=== PATIENT | female | born 1955 ===

== ENCOUNTER 2017-01-07 20:44 | Inpatient (IN) | payer OTHER ==
--- NOTE | 2017-01-07 21:09 | ED PDOC ---
"Arrival/HPI <ModeFranko chawla - Last Filed: 01/08/17 00:18> - General Historian: Patient <Marco Antonio Horner - Last Filed: 01/08/17 16:51> - General Chief Complaint: Back Pain Time Seen by Provider: 01/07/17 21:04 - History of Present Illness Narrative History of Present Illness (Text): 01/07/17 21:09 61 y/o female, pmh including htn/hyperlipidemia/chf/cad/stroke/a.fibb which she was on the eliquis but stop all medications about 2 months ago, penicillin allergy, c/o shortness of breath with the rt. flank pain x 2-3 days. Pt. stated that she is from [place], out of the [facility] for over 1 months, recently been experiencing rt. flank pain with the shortness of breath upon exertion, admits bilateral lower leg swelling with edema and vein dilating, no fever or chills, no coughing, no palpitation, no night sweat, no dizziness, no slurred speech, no pmd from [place], no other medical or psychological complaints. (Marco Antonio Horner) Past Medical History - Provider Review Nursing Documentation Reviewed: Yes - Infectious Disease Hx of Infectious Diseases: None - Reproductive Menopause: Yes - Cardiac Hx Cardiac Disorders: Yes Hx Congestive Heart Failure: Yes - Pulmonary Hx Respiratory Disorders: Yes Hx Asthma: Yes - Neurological Hx Neurological Disorder: No - HEENT Hx HEENT Disorder: Yes Other/Comment: glasses - Renal Hx Renal Disorder: No - Endocrine/Metabolic Hx Endocrine Disorders: No - Hematological/Oncological Hx Blood Disorders: No - Integumentary Hx Dermatological Disorder: No - Musculoskeletal/Rheumatological Hx Musculoskeletal Disorders: Yes Hx Arthritis: Yes Hx Back Pain: Yes - Gastrointestinal Hx Gastrointestinal Disorders: No - Genitourinary/Gynecological Hx Genitourinary Disorders: No - Psychiatric Hx Psychophysiologic Disorder: No Hx Substance Use: No - Surgical History Other/Comment: open heart surgery at 17 years old - Anesthesia Hx Anesthesia: Yes Hx Anesthesia Reactions: No <Marco Antonio Horner - Last Filed: 01/08/17 16:51> Family/Social History - Physician Review Nursing Documentation Reviewed: Yes Family/Social History: Unknown Family HX Smoking Status: Never Smoked Hx Alcohol Use: No Hx Substance Use: No <Marco Antonio Horner - Last Filed: 01/08/17 16:51> Allergies/Home Meds <Franko Coello - Last Filed: 01/08/17 00:18> <Marco Antonio Horner - Last Filed: 01/08/17 16:51> Allergies/Adverse Reactions: Allergies Penicillins Allergy (Verified 01/07/17 20:54) RASH Home Medications: Home Meds Medication Instructions Recorded Confirmed No Known Home Med 01/07/17 01/07/17 Review of Systems - Review of Systems Constitutional: absent: Fatigue, Fevers Respiratory: SOB. absent: Sputum, Wheezing Cardiovascular: absent: Chest Pain Gastrointestinal: absent: Abdominal Pain, Nausea, Vomiting Musculoskeletal: Back Pain. absent: Arthralgias, Neck Pain, Joint Swelling, Myalgias Skin: absent: Rash, Pruritis, Skin Lesions, Laceration, Abscess, Ulcer, Cellulitis <Marco Antonio Horner - Last Filed: 01/08/17 16:51> Physical Exam Vital Signs Reviewed: Yes Temperature: Afebrile Blood Pressure: Normal Pulse: Regular Respiratory Rate: Normal Appearance: Positive for: Well-Appearing, Non-Toxic, Comfortable Pain Distress: Moderate - Systems Exam Head: Present: Atraumatic, Normocephalic Pupils: Present: PERRL Extroacular Muscles: Present: EOMI Conjunctiva: Present: Normal Mouth: Present: Moist Mucous Membranes Neck: Present: Normal Range of Motion Respiratory/Chest: Present: Clear to Auscultation, Good Air Exchange. No: Respiratory Distress, Accessory Muscle Use Cardiovascular: Present: Regular Rate and Rhythm, Normal S1, S2, Other (2+ pedal edema noted bilateral lower extremities. ). No: Murmurs Abdomen: Present: Normal Bowel Sounds. No: Tenderness, Distention, Peritoneal Signs Back: Present: Normal Inspection. No: CVA Tenderness, Midline Tenderness, Paraspinal Tenderness, Pain with Leg Raise, Decubitus Ulcer Upper Extremity: Present: Normal Inspection. No: Cyanosis, Edema Lower Extremity: Present: Normal Inspection. No: Edema Neurological: Present: GCS=15, Speech Normal, Motor Func Grossly Intact, Memory Normal Skin: Present: Warm, Dry, Normal Color. No: Rashes Psychiatric: Present: Alert, Oriented x 3, Normal Insight, Normal Concentration <Marco Antonio Horner - Last Filed: 01/08/17 16:51> Vital Signs Temp Pulse Resp BP Pulse Ox 01/08/17 00:10 107 H 134/88 01/07/17 22:57 99 H 16 140/69 99 01/07/17 20:57 98.2 F 100 H 22 135/77 96 Medical Decision Making <Franko Coello - Last Filed: 01/08/17 00:18> - Lab Interpretations I have reviewed the lab results: Yes - RAD Interpretation Entry Specialists: Radiologist <Marco Antonio Horner - Last Filed: 01/08/17 16:51> ED Course and Treatment: 01/07/17 21:23 -labs/cardiac enzymes -ekg/cxr -ct abdomen and pelvis without contrast -IV morphine/aspirin -door frame assembler machine -observe and reassess 01/08/17 00:22 -EKG: A.fibb @ 110 BPM, no ST elevation or depression, no T wave inversion, -Chest x-ray show: cardiomegally -Bilateral lower extremities venuous doppler: as per preliminary report, no acute DVT -CT abdomen and pelvis: no acute findings except mild central canal stenosis with disc bulge noted at L4-L5 level and L5 S1 level -Labs show BNP elevation around 876 -PT/PTT with normal limit. -Pt.'s HR resting around 97-115BPM, lovenox and cardizam ordered. -I discussed with DR. Aquino, discussed about the labs/radiology studies and medication treatment, agreed on to admit the patient to her service with DR. Casper and Dr. Osborne as routine consult. -I discussed with Dr. Coello and he will put in the admission order. -I discussed with the patient and she agreed to be admitted. (Marco Antonio Horner) - Lab Interpretations Lab Results: 01/07/17 21:38 01/07/17 21:38 Lab Results 01/08/17 00:05: PT 10.5, INR 0.97, APTT 25.4 01/07/17 21:38: Sodium 140, Potassium 3.4 L, Chloride 100, Carbon Dioxide 30, Anion Gap 13, BUN 16, Creatinine 0.6, Est GFR ( Amer) > 60, Est GFR (Non- Af Amer) > 60, Random Glucose 81, Calcium 9.1, Total Bilirubin 0.5, AST 28, ALT 26, Alkaline Phosphatase 56, Lactate Dehydrogenase 587, Total Creatine Kinase 46 , Troponin I < 0.01, NT-Pro-B Natriuret Pep 876 H, Total Protein 8.4 H, Albumin 4.6, Globulin 3.8, Albumin/Globulin Ratio 1.2, Lipase 120 01/07/17 21:38: Urine Color Yellow, Urine Appearance Clear, Urine pH 6.0, Ur Specific [place] 1.010, Urine Protein Negative, Urine Glucose (UA) Negative, Urine Ketones Negative, Urine Blood Negative, Urine Nitrate Negative, Urine Bilirubin Negative, Urine Urobilinogen 0.2, Ur Leukocyte Esterase Trace H, Urine RBC 0 - 2, Urine WBC 0 - 2 01/07/17 21:38: WBC 9.1, RBC 4.65, Hgb 12.7, Hct 38.8, MCV 83.4, MCH 27.3, MCHC 32.7, RDW 15.0 H, Plt Count 180, MPV 9.6, Gran % 54.0, Lymph % (Auto) 38.8 H, [place] % (Auto) 5.8, Eos % (Auto) 1.1 L, Baso % (Auto) 0.3, Gran # 4.89, Lymph # 3.5 H, [place] # 0.5, Eos # 0.1, Baso # 0.03 - RAD Interpretation Radiology Orders: 01/07/17 21:16 ABD & PELVIS W/O PO OR IV CONT [CT] Stat CHEST PORTABLE [RAD] Stat DUPLEX LOWER EXTRM VEIN BILAT [US] Stat 01/07/17 21:16 ABD & PELVIS W/O PO OR IV CONT [CT] Stat CHEST PORTABLE [RAD] Stat DUPLEX LOWER EXTRM VEIN BILAT [US] Stat Chest x-ray: cardiomegaly Bilateral Lower extremities venuous doppler: as per preliminary report, no acute DVT CT Abdomen and pelvis: FINDINGS: Limitations: Evaluation of the solid organ is limited due to lack of IV contrast. Lower thorax: No acute findings. ABDOMEN: Liver: Slightly heterogenous in appearance. Gallbladder and bile ducts: Unremarkable. No calcified stones. No ductal dilation. Pancreas: Pancreas evaluation is limited. No ductal dilation. Spleen: Unremarkable. No splenomegaly. Adrenals: Left adrenal probable adenoma, measuring 2 cm. Kidneys and ureters: Unremarkable. No obstructing stones. No hydronephrosis. Stomach and bowel: Bowel evaluation is limited due to lack of distention. No mucosal thickening. Appendix: No findings to suggest acute appendicitis. PELVIS: Bladder: Unremarkable. No stones. OG FOX | Preliminary Radiology Report MINING TEACHER (QA) DISCREPANCY? If there is a discrepancy between the preliminary and final interpretation, please notify [employer] via [email or web address]. If you do not have access to our QA portal, call our QA team at [phone] CONFIDENTIALITY STATEMENT This report is intended only for the use of the referring physician, and only in accordance with law, If you received this in error, call [phone] Page 2 of 2 Reproductive: Unremarkable as visualized. ABDOMEN and PELVIS: Intraperitoneal space: Unremarkable. No free air. No significant fluid collection. Bones/joints: Significant degenerative changes are noted. There is relative mild central canal stenosis with disc bulge noted at L4-L5 level and L5 S1 level. There is neural foramina narrowing as well. No acute fracture. No dislocation. Soft tissues: Unremarkable. Vasculature: Atherosclerotic changes of the aorta. No abdominal aortic aneurysm. Lymph nodes: Unremarkable. No enlarged lymph nodes. IMPRESSION: No acute findings. Thank you for allowing us to participate in the care of your patient. Dictated and Authenticated by: Blanca Pereira MD 01/07/2017 11:24 PM Eastern Time ([place] & [place]) (Marco Antonio Horner) - Medication Orders Current Medication Orders: Apixaban (Eliquis) 5 mg PO BID [facility] PRN Reason: Protocol Last Admin: 01/08/17 10:38 Dose: 5 mg Aspirin (Ecotrin) 81 mg PO DAILY [facility] Last Admin: 01/08/17 15:21 Dose: 81 mg Atorvastatin Calcium (Lipitor) 40 mg PO DIN [facility] Diltiazem HCl (Cardizem Cd) 180 mg PO DAILY [facility] Last Admin: 01/08/17 10:35 Dose: 180 mg Gabapentin (Neurontin) 300 mg PO HS [facility] PRN Reason: Protocol Lisinopril (Zestril) 5 mg PO DAILY [facility] Last Admin: 01/08/17 15:21 Dose: 5 mg Naproxen (Anaprox Ds) 550 mg PO BID PRN PRN Reason: Arthritis Discontinued Medications Aspirin (Aspirin) 325 mg PO STAT STA Stop: 01/07/17 21:17 Last Admin: 01/07/17 21:45 Dose: 325 mg Diltiazem HCl (Cardizem) 10 mg IVP STAT STA Stop: 01/08/17 00:06 Last Admin: 01/08/17 00:10 Dose: 10 mg Enoxaparin Sodium (Lovenox) 105 mg SC STAT [facility]A PRN Reason: Protocol Stop: 01/08/17 00:37 Last Admin: 01/08/17 01:00 Dose: 105 mg Morphine Sulfate (Morphine) 2 mg IVP STAT STA Stop: 01/07/17 21:25 Last Admin: 01/07/17 21:45 Dose: 2 mg Naproxen (Anaprox Ds) 550 mg PO Q12 [facility] Oxycodone/Acetaminophen (Percocet 5/325 Mg Tab) 1 tab PO STAT STA Stop: 01/08/17 03:48 Last Admin: 01/08/17 04:18 Dose: 1 tab Re-Assess: NELL Pain Assessment Document 01/08/17 05:18 MAXWELL (Rec: 01/08/17 08:00 MAXWELL [id number]) Pain Reassessment Is this a pain reassessment? Yes Sleep Is patient sleeping during reassessment? Yes Pain Scale Used Pain Scale Used Numeric Description Aggravating Factors ADL's Changing Position Alleviating Factors/Management Medication Techniques Alleviating Factors Medication Effectiveness of Techniques EFFECTIVE Potassium Chloride (K-Dur 20 Meq Er Tab) 20 meq PO STAT STA Stop: 01/07/17 22:25 Last Admin: 01/07/17 22:30 Dose: 20 meq - PA / FINISHED GARMENT INSPECTOR / Resident Statement MELANIE has reviewed & agrees with the documentation as recorded. / has examined the patient and agrees with the treatment plan. <Franko Coello - Last Filed: 01/08/17 00:18> - PA / FINISHED GARMENT INSPECTOR / Resident Statement MD/DO has reviewed & agrees with the documentation as recorded. <Marco Antonio Horner - Last Filed: 01/08/17 16:51> Disposition/Present on Arrival <Franko Coello - Last Filed: 01/08/17 00:18> - Present on Arrival Any Indicators Present on Arrival: No History of DVT/PE: No History of Uncontrolled Diabetes: No Urinary Catheter: No History of Decub. Ulcer: No History Surgical Site Infection Following: None - Disposition Have Diagnosis and Disposition been Completed?: Yes Disposition Time: 00:24 Patient Plan: Admission, Telemetry <Marco Antonio Horner - Last Filed: 01/08/17 16:51> - Disposition Diagnosis: Rapid atrial fibrillation, Shortness of breath, Elevated brain natriuretic peptide (BNP) level Disposition: HOSPITALIZED Patient Problems: Current Active Problems Problem Status Onset Rapid atrial fibrillation Acute Shortness of breath Acute Elevated brain natriuretic peptide (BNP) level Acute Condition: STABLE"
[2017-01-07] MEDS ORDERED: Morphine 2 mg/ml ISec IVP STA (21:24)
[2017-01-07 22:07] LABS: BASO # 0.03 K/mm3 (0.0-2.0); BASO % 0.3 % (0.0-3.0); EOS # 0.1 (0.0-0.7); EOS % 1.1 % (1.5-5.0); GRAN # 4.89 (1.4-6.5); HEMOGLOBIN 12.7 g/dL (12.0-16.0); LYMPH # 3.5 (1.2-3.4); LYMPH % 38.8 % (22.0-35.0); MEAN CELL VOLUME 83.4 fl (80.0-105.0); MEAN CORPUSCULAR HEMOGLOBIN 27.3 pg (25.0-35.0); MEAN CORPUSCULAR HGB CONC 32.7 g/dl (31.0-37.0); MEAN PLATELET VOLUME 9.6 fl (7.0-11.0); MONO # 0.5 (0.1-0.6); MONO % 5.8 % (1.0-6.0); PLATELET COUNT 180 10^3/uL (120.0-450.0); RBC 4.65 10^6/uL (3.5-6.1); URINE BILIRUBIN NEGATIVE (NEGATIVE); URINE BLOOD NEGATIVE (NEGATIVE); URINE GLUCOSE (UA) NEGATIVE (NEGATIVE); URINE LEUKOCYTE ESTERASE TRACE Leu/uL (NEGATIVE); URINE NITRATE NEGATIVE (NEGATIVE); URINE PROTEIN NEGATIVE mg/dL (<30 mg/dL); URINE UROBILINOGEN 0.2 E.U./dL (<1 E.U./dL); WHITE BLOOD COUNT 9.1 10^3/ul (4.5-11.0)
[2017-01-07 22:08] LABS: URINE APPEARANCE CLEAR (CLEAR); URINE COLOR YELLOW (YELLOW)
[2017-01-07 22:15] LABS: ALB/GLOB RATIO 1.2 (1.1-1.8); ALBUMIN 4.6 g/dL (3.0-4.8); ALT/SGPT 26 U/L (7-56); AST/SGOT 28 U/L (15-39); BLOOD UREA NITROGEN 16 mg/dL (7-21); CALCIUM 9.1 mg/dL (8.4-10.5); GFR AFRICAN-AMERICAN > 60; GFR NON-AFRICAN AMERICAN > 60; LIPASE 120 U/L (23-300)
[2017-01-07 22:23] LABS: B-TYPE NATRIURETIC PEPTIDE 876 pg/mL (0-450)
[2017-01-07] MEDS ORDERED: Potassium Chloride 20 mEq ER Tab PO STA (22:24)
[2017-01-07 22:33] LABS: URINE RBC 0 - 2 /hpf (0-2); URINE WBC 0 - 2 /hpf (0-6)
[2017-01-07 22:35] LABS: TROPONIN I < 0.01 ng/mL
[2017-01-08] MEDS ORDERED: Enoxaparin 120 mg Syringe SC STA (00:36)
[2017-01-08 00:43] LABS: INR 0.97 (0.93-1.08); PARTIAL THROMBOPLASTIN TIME 25.4 Seconds (23.7-30.8); PROTHROMBIN TIME 10.5 Seconds (9.9-11.8)
[2017-01-08] MEDS ORDERED: Oxycodone/Acetaminophen 5/325 mg Tab PO STA (03:47)
[2017-01-08 04:17] VITALS: BMI 39.9
--- NOTE | 2017-01-08 08:16 | CT ---
PROCEDURE: CT Abdomen and Pelvis without intravenous contrast HISTORY: rt. flank/lower back pain x 3 days, focus L spine COMPARISON: None. TECHNIQUE: Technique. Contrast Dose: Radiation dose: Total exam DLP = 1136 mGy-cm. This CT exam was performed using one or more of the following dose reduction techniques: Automated exposure control, adjustment of the mA and/or kV according to patient size, and/or use of iterative reconstruction technique. FINDINGS: LOWER THORAX: Unremarkable. LIVER: Unremarkable. No gross lesion or ductal dilatation. GALLBLADDER AND BILE DUCTS: Unremarkable. PANCREAS: Unremarkable. No gross lesion or ductal dilatation. SPLEEN: Unremarkable. ADRENALS: 1.6 low-density left adrenal mass is present. A benign left adrenal adenoma is believe to most likely KIDNEYS AND URETERS: Unremarkable. No hydronephrosis. No gross solid mass. Appreciated on this noncontrast study No renal or ureteral calculi VASCULATURE: Scattered bilateral phleboliths are present. . No aortic aneurysm. BOWEL: Mildly redundant. With mild diverticulosis. No diverticulitis. No obstruction. No gross mural thickening. APPENDIX: Not identified. No pericecal inflammatory changes PERITONEUM: Unremarkable. No free fluid. No free air. LYMPH NODES: Unremarkable. No enlarged lymph nodes. BLADDER: Unremarkable. No bladder calculi. REPRODUCTIVE: Unremarkable. BONES: No acute fracture. Thoraco lumbar spondylosis intervening disc space narrowing and vacuum disc phenomena facet arthrosis OTHER FINDINGS: None. IMPRESSION: No urolithiasis No gross renal masses on this non IV contrast enhanced study. Senescent spine changes
--- NOTE | 2017-01-08 08:57 | RAD ---
HISTORY: shortness of breath COMPARISON: No prior. FINDINGS: LUNGS: No active pulmonary disease. PLEURA: No significant pleural effusion identified, no pneumothorax apparent. CARDIOVASCULAR: Severe cardiomegaly OSSEOUS STRUCTURES: Sternal wires VISUALIZED UPPER ABDOMEN: Normal. OTHER FINDINGS: None. IMPRESSION: Severe cardiomegaly.
--- NOTE | 2017-01-08 09:10 | US ---
HISTORY: Leg pain and swelling. Evaluate for DVT PHYSICIAN(S): Aman Spicer MD. TECHNIQUE: Duplex sonography and color-flow Doppler with graded compression were used to evaluate the deep venous systems of both lower extremities. The exam is somewhat limited by edema. FINDINGS: The visualized deep venous systems of both lower extremities are sonographically normal and compressible. Normal wave forms and augmentation are seen. There is no sonographic evidence for deep venous thrombosis in the visualized segments of both lower extremities. IMPRESSION: No sonographic evidence for deep venous thrombosis in the visualized segments of both lower extremities.
[2017-01-08] MEDS: diltiaZEM 180 mg/24 Hours CD Cap PO SCH (10:35)
[2017-01-08 11:25] LABS: BLOOD UREA NITROGEN 14 mg/dL (7-21); CALCIUM 8.9 mg/dL (8.4-10.5); GFR AFRICAN-AMERICAN > 60; GFR NON-AFRICAN AMERICAN > 60; HDL CHOLESTEROL 61 mg/dL (29-60)
[2017-01-08 11:36] LABS: LDL CHOLESTEROL 87 mg/dL (0-129)
[2017-01-08] MEDS ORDERED: Naproxen 550 mg Tab PO PRN (15:09)
--- NOTE | 2017-01-08 18:13 | CARD ---
APPROVED REPORT EXAM: Two-dimensional and M-mode echocardiogram with Doppler and color Doppler. INDICATION Atrial Fibrillation Congestive Heart Failure 2D DIMENSIONS Left Atrium (2D)5.7 (1.6-4.0cm)IVSd1.0 (0.7-1.1cm) LVDd6.1 (3.9-5.9cm)PWd1.1 (0.7-1.1cm) LVDs5.1 (2.5-4.0cm)FS (%) 16.6 % LVEF (%)34.2 (>50%) M-Mode DIMENSIONS Aortic Root3.30 (2.2-3.7cm)Aortic Cusp Exc.2.00 (1.5-2.0cm) Aortic Valve AoV Peak Lxzdfarf860.0cm/Rebecca Peak GR.11mmHg Mitral Valve E/A ratio0.0 TDI E/Lateral E'0.0E/Medial E'0.0 Tricuspid Valve TR Peak [id number] [id number] Peak Gr.19mmHg [id number] LEFT VENTRICLE The Left Ventricle is mildly dilated. There is normal left ventricular wall thickness. The systolic function is moderately impaired.[id number] There is global hypokinesis of the left ventricle. A fib No left ventricle thrombus noted on this study. There is no ventricular septal defect visualized. There is no left ventricular aneurysm. There is no mass noted in the left ventricle. RIGHT VENTRICLE The right ventricle is mildly dilated. There is normal right ventricular wall thickness. Systolic function is mildly to moderately reduced. ATRIA The left atrium is severely dilated. The right atrium is severely dilated. The interatrial septum is intact with no evidence for an atrial septal defect. AORTIC VALVE The aortic valve is thickened but opens well. The aortic valve is mildly to moderately sclerotic. No aortic regurgitation is present. There is no aortic valvular stenosis. There is no aortic valvular vegetation. MITRAL VALVE The mitral valve is thickened but opens well. Mitral annular calcification is mild. Mitral regurgitation is mild to moderate. There is no mitral valve stenosis. There is no evidence of mitral valve prolapse. TRICUSPID VALVE The tricuspid valve leaflets are thickened , but open well. There is mild to moderate tricuspid regurgitation.RVSP-29 mmof Hg. There is no tricuspid valve stenosis. There is no tricuspid valve prolapse or vegetation. PULMONIC VALVE The pulmonary valve is normal in structure. There is trace pulmonic valvular regurgitation. There is no pulmonic valvular stenosis. GREAT VESSELS The aortic root is normal in size. The ascending aorta is normal in size. The pulmonary artery is normal. The IVC is dilated. PERICARDIAL EFFUSION There is no pleural effusion. There is no pericardial effusion. <Conclusion> Four chamber Dilatation. EF-35% No aortic regurgitation is present. Mitral regurgitation is mild to moderate. There is mild to moderate tricuspid regurgitation.RVSP-29 mmof Hg. The IVC is dilated. There is no pericardial effusion. No thrombus or vegetation noted.
[2017-01-08] MEDS ORDERED: Albuterol 0.083% Inhal Sol (2.5 mg/3 mL) UD IH PRN (20:02)
--- NOTE | 2017-01-08 20:30 | CON ---
DATE: 01/08/2017 REASON FOR CONSULTATION AND FOLLOWUP: History of atrial fibrillation, hypertension and admitted with back pain. HISTORY OF PRESENT ILLNESS: A 61-year-old female, resident of [place], visiting at [place]. History of hypertension,hyperlipidemia, history of open heart surgery for atrial septal defect at the age of 11, being followed by national business director in [place], was told to take Cardizem and Eliquis, but patient did not buy the Eliquis, stopped it because it is expensive, taking only Cardizem, admitted yesterday with back pain and flank pain. Denies any chest pain, denies any shortness of breath, denies any palpation. PAST MEDICAL HISTORY: Significant for hypertension, hyperlipidemia, and atrial fibrillation. CURRENT MEDICATION: Taking Cardizem 180 mg and Eliquis 5 mg b.i.d. but did not take Eliquis for more than 2 months. SOCIAL HISTORY: Denies smoking, denies any history of alcohol abuse. PAST SURGICAL HISTORY: History is significant for open heart surgery at age of 11 for atrial septal defect. FAMILY HISTORY: Not contributory. REVIEW OF SYSTEMS: As per HPI. PHYSICAL EXAMINATION: As follows; VITAL SIGNS: Temperature is afebrile, heart rate 97, and blood pressure 157/77. HEENT: PERRLA. Extraocular muscles intact. NECK: Supple. No carotid bruit. No thyromegaly. CHEST: Clear to auscultation. HEART: S1 and S2 regular. ABDOMEN: Soft. EXTREMITIES: Clubbing and cyanosis negative. LABORATORY DATA: EKG showed atrial fibrillation rate of 120, telemetry shows heart rate of 190. Blood workup as follows; WBC 9.8, hemoglobin 12.7, hematocrit 38.8, and platelet count 180. Chemistry shows sodium 140, potassium 3.4, chloride 100, carbon dioxide 30, anion gap of 13, BUN of 16, and creatinine 0.6. Troponin 0.01. IMPRESSION: A 61-year-old female with the past medical history significant for open heart surgery for atrial septal defect at age of 11, history of atrial fibrillation, was on Eliquis, but had stopped two months ago, hypertension, hyperlipidemia, admitted with back pain found to be in atrial fibrillation with rapid rate. The patient started Cardizem and then it was discontinued. The recommendation, will start Eliquis, will start Cardizem CD, echo to assess left ventricular function. The patient wanted to go back to [place] to follow up with cardiology, she has an appointment on next Friday. We will get echocardiogram to assess left ventricular function if patient stays. If patient goes home suggest to continue Eliquis 5 mg b.i.d., Cardizem 180 mg daily and to follow up with the national business director in [place] next Friday. Thank you Dr. Aquino for providing the opportunity in taking care of the patient, Lucero Siegel. We will follow with you. Jessica Oseguera MD cc: Elisa Aquino MD
[2017-01-08] MEDS ORDERED: Naproxen 550 mg Tab PO SCH (22:00)
--- NOTE | 2017-01-09 01:07 | CARD ---
APPROVED REPORT EKG Measurement Heart [id number] <Conclusion> Atrial fibrillation with rapid ventricular response Nonspecific ST and T wave abnormality, probably digitalis effect Abnormal ECG
--- NOTE | 2017-01-09 02:47 | CON ---
DATE: 01/08/2017 PULMONARY CONSULTATION NOTE REFERRING PHYSICIAN: Dr. Aquino. REASON FOR CONSULTATION: May have sleep apnea syndrome, chronic lung disease, admitted with atrial fibrillation with rapid ventricular response. HISTORY OF PRESENT ILLNESS: This is a 61-year-old female with past medical history significant for hypertension, coronary artery disease, heart failure, history of stroke, atrial fibrillation, chronic lung disease. The patient lived in [place]. According to the patient for the last couple of months, she was noncompliant with the medications and stopped some of the medications, had no recall exactly what medications she is taking. Visiting [place] friend, where she developed palpitations, shortness of breath, leg swelling and came to the emergency room, found to be AFib with rapid ventricular response. She was started on IV Cardizem,started on Eliquis. Lasix was given with some success and she feels much better. She likes to sign against medical advice, sitting in the bed with some shortness of breath. I had a long discussion with the patient about her medications, risk of her with her medical issues. She is willing to stay another day until we sought out her medications and stuff. Admits to have snoring, daytime sleepy and tired. Cannot recall her medications, but also admitting that she had been noncompliant on and off. PAST MEDICAL HISTORY: Atrial fibrillation, heart failure, history of stroke, hypertension, hyperlipidemia. ALLERGIES: TO PENICILLIN. SOCIAL HISTORY: She denies any smoking or alcohol use. FAMILY HISTORY: No significant cardiopulmonary disease reported. MEDICATIONS: She was on Cardizem, Eliquis. HOME MEDICATIONS: Unavailable. REVIEW OF SYSTEMS: No headache. No rhinitis. Admit to have snoring and daytime sleepy. Short of breath. No chest pain. No nausea. No vomiting. No diarrhea. No dysuria. Has a leg swelling. PHYSICAL EXAMINATION: VITAL SIGNS: Sitting telemetry bed. Temp is 98, heart rate is 107, respiratory rate is 20, blood pressure 148/86, pulse ox 98% on nasal cannula. HEENT: Moist mucous membranes. Carotid airway. Mallampati score is IV. NECK: Short neck. LUNGS: Has a few crackles at the bases. HEART: Irregularly irregular. ABDOMEN: Soft, nontender. No organomegaly. EXTREMITIES: Does have edema. NEUROLOGIC: Awake, alert and follows simple commands. LABORATORY DATA: Hemoglobin 12.7, hematocrit 38.8, WBC 9.1, and platelets are 180. INR 0.97, PTT is 25. Sodium 140, potassium 4.4, chloride 100, bicarbonate 31, BUN 14, creatinine 0.6, glucose 106, calcium is 8.9. AST 28, ALT 26, alk phos is 56, troponin less than 0.01. TSH is 2.24. Urinalysis is unremarkable. Had CAT scan of the abdomen and pelvis done on admission, which shows no urolithiasis, no gross renal mass. Chest x-ray done which shows cardiomegaly, otherwise unremarkable. Has a venous Doppler on lower extremities done which shows no DVT. IMPRESSION AND PLAN: Cardiomyopathy with atrial fibrillation, rapid ventricular response, hypertension, history of stroke, may have a sleep apnea syndrome, arthritis, noncompliant with the medications. After getting the number for the pharmacy for [place], call was made. According to pharmacy, the patient did not fill her prescription for almost a year, but her clinic was called. According to clinic, a list of medications were obtained which she was taking Naprosyn at home, aspirin at home, Tenormin was also taking. She was on Eliquis 5 mg twice a day, also taking Lipitor 40 mg daily, Neurontin 30 mg at bedtime, Zestril 5 mg daily, so the patient is being started on her home medications according to the clinic data. We will not start Tenormin because she is already on Cardizem for now. We will get cardiology consult. Dr. Hargrove will be seeing the patient. Sleep apnea precaution, *------* any distress. The patient was advised that she go back to [place]. She should have a sleep study done before she leaves tomorrow. If she is stable and cleared by cardiology, we will try to get her medications from pharmacy before she leaves to assure that she will be compliant because she is living in [place] another week or so before she go to [place]. Case discussed with nursing staff in detail. Thank you and we will follow with you. Jessica Osborne MD
[2017-01-09] MEDS: diltiaZEM 180 mg/24 Hours CD Cap PO SCH (09:28)
[2017-01-09 12:26] VITALS: BP 130/52; O2SAT 98
--- NOTE | 2017-01-09 13:03 | HP ---
The patient is [id number] female. CHIEF COMPLAINT: Shortness of breath, noncompliance with medication and back pain. HISTORY OF PRESENT ILLNESS: The patient is an [id number] female with past medical history of hypertension, hypochloremia, congestive heart failure, coronary artery disease, stroke, atrial fibrillation while on Eliquis, but she stopped her medication about 2 months ago. Now came for shortness of breath with the right flank pain from 2 to 3 days. The patient stated that she is from [place] and was out of [facility] for over one month. Recently has been experiencing right flank pain with the shortness of breath upon exertion, admits bilateral lower extremity swelling with edema and vein dilating. No fever, no chills, no nausea, vomiting, diarrhea. No palpitation. No night sweats, no dizziness, no slurring of speech, but experiencing shortness of breath. PAST MEDICAL HISTORY: As above, congestive heart failure, asthma, respiratory problem, COPD, arthritis, back pain, open heart surgery 15 years ago. FAMILY HISTORY: Father and mother noncontributory. HABITS: Never smoked. No drug and no ethanol. ALLERGIES: THE PATIENT IS ALLERGIC TO PENICILLIN. HOME MEDICATION: She is not taking any medication. REVIEW OF SYSTEMS: The patient seen and examined in holding bed of telemetry in the ICU, feeling shortness of breath, chest pain, abdominal pain, back pain. No nausea, vomiting or diarrhea. No hematochezia. No headache or dizziness. PHYSICAL EXAMINATION: VITAL SIGNS: Temperature 98.6, pulse 92, blood pressure 125/57, respiratory rate 23. HEENT: Head is normocephalic and atraumatic. Eyes; PERRLA. Extraocular muscles intact. Conjunctivae clear. Nose is patent. Mucous membrane moist. NECK: Supple. No carotid bruits or thyromegaly. CHEST: Bilaterally symmetrical. HEART: S1 and S2 positive. LUNGS: Clear to auscultation. ABDOMEN: Soft. Bowel sounds positive. No organomegaly. EXTREMITIES: No edema. No cyanosis. NEUROLOGIC: The patient is awake and alert. Moving all 4 extremities. No focal deficit. LABORATORY DATA: White blood cell of 9.1, hemoglobin 12.7, hematocrit 38.8 and platelets 180. Sodium 140, potassium 4.4, hemoglobin A1c 5.5, BNP 876. ASSESSMENT AND PLAN: The patient is a [id number] lady with congestive heart failure, cardiomyopathy with atrial fibrillation, rapid ventricular response, noncompliant to medication, hypertension, history of stroke, sleep apnea syndrome, arthritis and she is resident of [place]. [place] pharmacy was contacted and according to that patient's medicine was not filled for almost a year. The patient should be on Eliquis twice a day, Lipitor, Neurontin. We started medications again. Cardiology and pulmonary disease on the case. Sleep apnea precautions. Advised to take medications regularly. Discussion done with this patient. The patient seen by Dr. Oseguera also. Extremity ultrasound was done by Dr. Aman Spicer, history of open heart surgery with atrial septal defect at the age of 11, hypercholesteremia. We will do echo to assess left ventricular function as per Dr. Oseguera. GI/DVT prophylaxis. We will follow. Elisa Aquino MD KATERINA
[2017-01-09 15:30] VITALS: PULSE 72; RESP 32
[2017-01-09 18:10] VITALS: TEMP 99.1
--- NOTE | 2017-01-09 21:51 | PN ---
DATE: 01/09/2017 REASON FOR CONSULTATION: History of atrial fibrillation, hypertension, admitted with back pain and noncompliance with medication. SUBJECTIVE: The patient denies any chest pain now or shortness of breath, feels much better, wants to go home. OBJECTIVE: GENERAL: Lying flat on the bed in ICU, not in distress. VITAL SIGNS: Temperature afebrile, heart rate *------*, and blood pressure 108/64. HEENT: PERRLA. Extraocular muscles intact. NECK: Supple. No carotid bruits. No thyromegaly. CHEST: Clear to auscultation. HEART: S1 and S2 regular. ABDOMEN: Soft. EXTREMITIES: Clubbing and cyanosis are negative. LABORATORY DATA: Blood workup as follows, WBC 9.1, hemoglobin 12.7, hematocrit 38.8 and platelet count 180 as of 01/07/2017. Blood workup yesterday showed sodium 140, potassium 4.4, chloride 100, carbon dioxide 31, anion gap of 13, BUN 14 and creatinine 0.1. TSH is 2.24. Total triglyceride 96, VLDL total cholesterol 160, LDL 87, HDL 61. IMPRESSION: Chronic atrial fibrillation, was on Eliquis, noncompliance with medication. Hypertension, being followed in [place], dialysis technician. Yesterday, the patient underwent echocardiography that showed four-chambered heart, ejection fraction of 35%, [id number] mitral regurgitation, [id number] tricuspid regurgitation, RV systolic pressure 29, and etiology for cardiomyopathy not clear, but the patient is being followed by [place] dialysis technician, on Eliquis and Cardizem, so we will resume Cardizem and Eliquis. The patient is willing to go back to dialysis technician and has an appointment on next Friday or ; so we will resume Cardizem and start it again and continue Eliquis, continue aspirin, continue lisinopril 5 mg daily and possibly discharged home to be followed with above plan, followed up with the patient's dialysis technician in [place]. The patient has an appointment on Friday or . In the interim, continue aspirin, continue apixaban and atorvastatin. Discontinue Lovenox. Discontinue also Cardizem because the patient is already on Eliquis. We will follow with you. Upon discharge, the patient will see the dialysis technician. Thank you Dr. Aquino for providing the opportunity in taking care of the patient, Lucero Siegel. Jessica Oseguera MD cc: Elisa Aquino MD
--- NOTE | 2017-01-11 01:28 | CP.PCM.DIS ---
Provider - Provider Date of Admission: 01/08/17 00:18 Attending physician: Elisa Aquino MD Primary care physician: serenity lyn of 01/09/17 Time Spent in preparation of Discharge (in minutes): 60 Diagnosis - Discharge Diagnosis (1) CHF (congestive heart failure) Status: Acute (2) Asthma Status: Acute (3) Non-compliant patient Status: Acute Hospital Course - Lab Results Lab Results: Micro Results 01/08/17 03:00 Nose MRSA Culture (Admit) - Final MRSA NOT DETECTED Most Recent Lab Values WBC 9.1 10^3/ul (4.5-11.0) 01/07/17 21:38 RBC 4.65 10^6/uL (3.5-6.1) 01/07/17 21:38 Hgb 12.7 g/dL (12.0-16.0) 01/07/17 21:38 Hct 38.8 % (36.0-48.0) 01/07/17 21:38 MCV 83.4 fl (80.0-105.0) 01/07/17 21:38 MCH 27.3 pg (25.0-35.0) 01/07/17 21:38 MCHC 32.7 g/dl (31.0-37.0) 01/07/17 21:38 RDW 15.0 % (11.5-14.5) H 01/07/17 21:38 Plt Count 180 10^3/uL (120.0-450.0) 01/07/17 21:38 MPV 9.6 fl (7.0-11.0) 01/07/17 21:38 Gran % 54.0 % (50.0-68.0) 01/07/17 21:38 Lymph % (Auto) 38.8 % (22.0-35.0) H 01/07/17 21:38 Isabella % (Auto) 5.8 % (1.0-6.0) 01/07/17 21:38 Eos % (Auto) 1.1 % (1.5-5.0) L 01/07/17 21:38 Baso % (Auto) 0.3 % (0.0-3.0) 01/07/17 21:38 Gran # 4.89 (1.4-6.5) 01/07/17 21:38 Lymph # 3.5 (1.2-3.4) H 01/07/17 21:38 Isabella # 0.5 (0.1-0.6) 01/07/17 21:38 Eos # 0.1 (0.0-0.7) 01/07/17 21:38 Baso # 0.03 K/mm3 (0.0-2.0) 01/07/17 21:38 PT 10.5 Seconds (9.9-11.8) 01/08/17 00:05 INR 0.97 (0.93-1.08) 01/08/17 00:05 APTT 25.4 Seconds (23.7-30.8) 01/08/17 00:05 Sodium 140 mmol/L (132-148) 01/08/17 11:05 Potassium 4.4 mmol/L (3.6-5.0) 01/08/17 11:05 Chloride 100 mmol/L (98-107) 01/08/17 11:05 Carbon Dioxide 31 mmol/L (21-33) 01/08/17 11:05 Anion Gap 13 (10-20) 01/08/17 11:05 BUN 14 mg/dL (7-21) 01/08/17 11:05 Creatinine 0.6 mg/dL (0.5-1.4) 01/08/17 11:05 Est GFR ( Amer) > 60 01/08/17 11:05 Est GFR (Non-Af Amer) > 60 01/08/17 11:05 Random Glucose 106 mg/dL (70-110) 01/08/17 11:05 Hemoglobin A1c 5.5 % (4.2-6.5) 01/08/17 11:05 Calcium 8.9 mg/dL (8.4-10.5) 01/08/17 11:05 Total Bilirubin 0.5 mg/dL (0.2-1.3) 01/07/17 21:38 AST 28 U/L (15-39) 01/07/17 21:38 ALT 26 U/L (7-56) 01/07/17 21:38 Alkaline Phosphatase 56 U/L (38-133) 01/07/17 21:38 Lactate Dehydrogenase 587 U/L (333-699) 01/07/17 21:38 Total Creatine Kinase 46 U/L (35-230) 01/07/17 21:38 Troponin I < 0.01 ng/mL 01/07/17 21:38 NT-Pro-B Natriuret Pep 876 pg/mL (0-450) H 01/07/17 21:38 Total Protein 8.4 g/dL (5.8-8.3) H 01/07/17 21:38 Albumin 4.6 g/dL (3.0-4.8) 01/07/17 21:38 Globulin 3.8 gm/dL 01/07/17 21:38 Albumin/Globulin Ratio 1.2 (1.1-1.8) 01/07/17 21:38 Triglycerides 96 mg/dL (35-160) 01/08/17 11:05 Cholesterol 160 mg/dL (130-200) 01/08/17 11:05 LDL Cholesterol Direct 87 mg/dL (0-129) 01/08/17 11:05 HDL Cholesterol 61 mg/dL (29-60) H 01/08/17 11:05 Lipase 120 U/L (23-300) 01/07/17 21:38 TSH 3rd Generation 2.24 mIU/mL (0.46-4.68) 01/08/17 11:05 Urine Color Yellow (YELLOW) 01/07/17 21:38 Urine Appearance Clear (CLEAR) 01/07/17 21:38 Urine pH 6.0 (4.7-8.0) 01/07/17 21:38 Ur Specific Wink 1.010 (1.005-1.035) 01/07/17 21:38 Urine Protein Negative mg/dL (<30 mg/dL) 01/07/17 21:38 Urine Glucose (UA) Negative mg/dL (NEGATIVE) 01/07/17 21:38 Urine Ketones Negative mg/dL (NEGATIVE) 01/07/17 21:38 Urine Blood Negative (NEGATIVE) 01/07/17 21:38 Urine Nitrate Negative (NEGATIVE) 01/07/17 21:38 Urine Bilirubin Negative (NEGATIVE) 01/07/17 21:38 Urine Urobilinogen 0.2 E.U./dL (<1 E.U./dL) 01/07/17 21:38 Ur Leukocyte Esterase Trace Ashleigh/uL (NEGATIVE) H 01/07/17 21:38 Urine RBC 0 - 2 /hpf (0-2) 01/07/17 21:38 Urine WBC 0 - 2 /hpf (0-6) 01/07/17 21:38 - Hospital Course Hospital Course: 61 y/o female, pmh including htn/hyperlipidemia/chf/cad/stroke/a.fibb which she was on the eliquis but stop all medications about 2 months ago, penicillin allergy, c/o shortness of breath with the rt. flank pain x 2-3 days. Pt. stated that she is from [place], out of the [employer] for over 1 months, recently been experiencing rt. flank pain with the shortness of breath upon exertion, admits bilateral lower leg swelling with edema and vein dilating, no fever or chills, no coughing, no palpitation, no night sweat, no dizziness, no slurred speech, no pmd from [place], no other medical or psychological complaints. admitted pt to icu . holding bed for tele . cardio and pulmo . saw the pt , cl. for dc . meds given , urge to be complaint Discharge Exam - Head Exam Head Exam: ATRAUMATIC, NORMAL INSPECTION, NORMOCEPHALIC - Eye Exam Eye Exam: EOMI, Normal appearance, PERRL Pupil Exam: NORMAL ACCOMODATION, PERRL - GI/Abdominal Exam GI & Abdominal Exam: Normal Bowel Sounds - Rectal Exam Rectal Exam: NORMAL INSPECTION - Exam Exam: Circumcision, NORMAL INSPECTION External exam: NORMAL EXTERNAL EXAM Speculum exam: NORMAL SPECULUM EXAM Bimanual exam: NORMAL BIMANUAL EXAM - Neurological Exam Neurological exam: Alert, CN II-XII Intact, Normal Gait, Oriented x3, Reflexes Normal - Psychiatric Exam Psychiatric exam: Normal Affect, Normal Mood - Skin Skin Exam: Dry, Intact, Normal Color, Warm Discharge Plan - Follow Up Plan Condition: STABLE Disposition: HOME/ ROUTINE Instructions: Diltiazem (By mouth), Clopidogrel (By mouth), Apixaban (By mouth) , Heart Failure (DC), Atrial Fibrillation (DC) Additional Instructions: Follow up with Primary physican within one week.
--- NOTE | 2017-01-11 13:09 | PQF CHF ---
This form is a permanent part of the medical record Dr. Oseguera, Pt admitted for rapid Atrial Fibrillation with elevated BNP of 876 with CHF. Please specify the severity and acuity of CHF. Please see choices below. Thank you. Clarification of your documentation is requested to better reflect the severity of illness and intensity of treatment of your patient. Indicators present [x] Diagnosis of CHF and/or history of CHF [x] BNP > 200 [] Imaging Finding of Pulmonary Edema /Pleural Effusions [] Fluid/Volume Overload [] Pitting edema [] Ejection Fraction < 40% (Indicative of Systolic Heart Failure) [] Ejection Fraction > 40% (Indicative of Diastolic Heart Failure) [] Dyspnea / Orthopenea / Paroxysmal Nocturnal Dyspnea [] Other: Location in the medical record that reflects the above clinical findings: [] Treatment Provided: [] PHYSICIAN'S RESPONSE Based on your medical judgment of the clinical indicators outlined above, are you treating this patient for a known or suspected: [] Acute CHF [] Systolic [] Diastolic [] Combined [] Chronic CHF [] Systolic [] Diastolic [] Combined [x] Acute on Chronic CHF [x]Systolic [] Diastolic [] Combined [] CHF due hypertension [] Acute systolic []Chronic systolic [] Acute/ chronic systolic [] Other, please indicate: [] [] If Unable to Determine, please check the box, sign and date. Present On Admission (POA) Indicator: [] Present at the time of admission [] Not present at the time of admission [] Clinically Undetermined In responding to this query, please exercise your independent professional judgment. The fact that a question is asked does not imply that any particular answer is desired or expected. Thank you for your clarification on this documentation. If you have any questions please call:[ ] * Thank you, [ ]GERARDO RIBEIROinterior design instructor KATERINA
== END 2017-01-09 18:22 | disposition home or self-care (01) | DRG 308 ==
LOC: ED 20:44 → MERGE 01-08 00:18 → ERH 01-08 00:18 → CCU 01-08 01:44
PROVIDERS: ADMIT Internal Medicine; ATTEND Internal Medicine
DX: I48.2 Chronic atrial fibrillation (principal); I50.23 Acute on chronic systolic (congestive) heart failure; I11.0 Hypertensive heart disease with heart failure; I42.9 Cardiomyopathy, unspecified; I08.1 Rheumatic disorders of both mitral and tricuspid valves; J44.9 Chronic obstructive pulmonary disease, unspecified; I25.10 Atherosclerotic heart disease of native coronary artery without angina pectoris; E78.5 Hyperlipidemia, unspecified; Z88.0 Allergy status to penicillin; Z91.14 Patient's other noncompliance with medication regimen; M19.90 Unspecified osteoarthritis, unspecified site; Z86.73 Personal history of transient ischemic attack (TIA), and cerebral infarction without residual deficits; E78.00 Pure hypercholesterolemia, unspecified; Z87.74 Personal history of (corrected) congenital malformations of heart and circulatory system